=== PATIENT | female | born 1980 | race Caucasian/White ===

== ENCOUNTER 2016-07-06 12:47 | Emergency (ER) | payer OTHER ==
[2016-07-06 13:05] LABS: URINE BILIRUBIN NEGATIVE (NEGATIVE); URINE BLOOD 3+ (NEGATIVE); URINE KETONE NEGATIVE (NEGATIVE); URINE LEUKOCYTE ESTERASE TRACE (NEGATIVE); URINE NITRATE NEGATIVE (NEGATIVE); URINE PROTEIN NEGATIVE (NEGATIVE); UROBILINOGEN NORMAL mg/dL (<1.0)
[2016-07-06 13:28] LABS: URINE GLUCOSE (UA) 1000 mg/dL (NORMAL)
[2016-07-06 13:29] LABS: URINE BACTERIA TRACE (NONE SEEN); URINE RBC >20 /[HPF] (0-2); URINE SQUAMOUS EPITHELIAL CELL 0-10 /[HPF] (NONE SEEN); URINE WBC 0-5 /[HPF] (0-5)
== END 2016-07-06 16:41 | disposition home or self-care (01) ==
LOC: ER 12:47
PROVIDERS: Emergency Medicine
DX: N39.0 Urinary tract infection, site not specified (principal); R10.32 Left lower quadrant pain; E11.9 Type 2 diabetes mellitus without complications; F17.210 Nicotine dependence, cigarettes, uncomplicated; Z79.4 Long term (current) use of insulin; Z79.899 Other long term (current) drug therapy
CPT/HCPCS: 74150; 81001; 81025; 99070; 99283-25